=== PATIENT | female | born 1995 | race African-American/Black ===

== ENCOUNTER 2019-01-24 08:56 | Emergency (ER) | payer OTHER ==
--- OUTSIDE RECORDS SUMMARY | 2019-01-24 09:10 | XMS REPORT | Continuity of Care Document ---
:1995 Author Organization [facility] Address [address], [place] [id number] Phone Care Team Providers Name Role Phone Sobia Estrada NP Unavailable Unavailable Allergies, Adverse Reactions, Alerts Substance Reaction Status amoxicillin Hives Active cefaclor Hives Active clarithromycin Hives Active Medications Medication Instructions Dosage Effective Dates Status Comments (start - stop) BD Luer-Makeda Syringe 1 USE DIRECTED TO - Active mL 20 gauge x 1" DRAW UP TESTOSTERONE WEEKLY FOR SUBCUTANEOUS INJECTIONS Monoject Hypodermic Use for - Active Penngrove 25 gauge x subcutaneous 5/8" testosterone injections testosterone inject 0.5 - Active cypionate 200 mg/mL milliliter (100mg) intramuscular oil by subcutaneous route every week - CODE F Monoject Hypodermic Use for - No Longer Penngrove 25 gauge x subcutaneous Active 5/8" testosterone injections BD Luer-Makeda Syringe 1 USE DIRECTED TO - No Longer mL 20 gauge x 1" DRAW UP Active TESTOSTERONE WEEKLY FOR SUBCUTANEOUS INJECTIONS Problems Condition Effective Dates (start - Clinical Status Comments stop) Encntr screen for dis of the bld/bld-form org/immun mechnsm Transsexualism Endocrine disorder, unspecified Transsexualism Human immunodeficiency virus [HIV] - counseling Endocrine disorder, unspecified Transsexualism Body mass index (BMI) 29.0-29.9, adult [id number] transsexual - Active Procedures Procedure Date No information Results Test Name Date and Time Measure Units Reference Range Abnormal Flag Status Comments No information Advance Directives Directive Yes / No Effective Date File Name No information Encounters Encounter Practice Location Reason(s) Diagnoses Date Provider Providers Description For Visit Copied on Encounter [facility] [place] [address], [place], [place], [address], [facility], [address], [place], [place], [id number], [place] tel:[phone] [facility] Nov- [facility] [place]. [address], [place], [place], [facility], [facility] [address] tel:[phone], [place], [address] [place], [id number], [place] tel:[phone] [facility] September- [facility] [place]. [address], [place], [place], [facility], [facility] [address] tel:+ St, [place], [address] [place], [id number], [place] tel:[phone] [facility] Encntr screen Jul- [facility] [place] for dis of the [place]. [address] Provider: [facility] bld/bld-form [address], [place] org/immun [place], [place], [place] [facility], [facility] mechnsmTranssexu [id number]. s, [address] alism tel:+[phone], [place], [address] [place], [place], [address]. [id number], tel:[phone] tel:[phone] [facility] Endocrine [place] [facility]erring [facility] [place] disorder, virgilio [place]. Provider: [facility] unspecifiedTrans 8 [address] [place] [address], [place], [place], [address] [place], [address]. emmer, [address] tel:+[phone], [place], [address] [address], [place], [place], [id number], [place], [address]. [place] tel:+ tel:[phone] [facility] Human Sep-1 Ernesto Referring [facility] [place] immunodeficiency 0-201 Katja. [address] Provider: [place] virus [HIV] [address], [place] counseling[place]ocr [place], [place], Chika Schulz, [address] ine disorder, [address], [place]. [address] unspecifiedTrans tel:[address], [place], sexualismBody [address] [place], [place], [place] ([place], [address]. [id number], 29.0-29.9, adult tel: [phone] tel:[phone] Family History Family Member Diagnosis Age At Onset Mother Pulmonary Fibrosis Father Cardiovascular disease Father High cholesterol, first degree relative Family history of Diabetes (any type), first degree relative Paternal grandfather Myocardial infarction (Cause Of ) 55 Immunizations Vaccine Date Status Comments No information Payers Payer name Insurance type Covered green party ID Authorization(s) No information Social History Type Description Quantity Date Captured Comments Alcohol Use Details Unknown Caffeine Use Details Unknown Tobacco Use Status Unknown Smoking Status Never smoker Sex Female Vital Signs Date / Height Weight BMI Pulse Blood Temperature Respiratory Body Head BMI Pulse Inhaled Time: Rate Pressure Rate Surface Circumference percentile Ox Ox Area No information Chief Complaint And Reason For Visit No information Reason For Referral Reason For Referral No information Plan Of Treatment Date Type Action Status No information History Of Present Illness Encounter Date Complaint History Of Present Illness No information Functional Status Date Functional Assessment No information Medications Administered Medication Instructions Dosage Effective Dates (start - stop) Status Comments No information Instructions Date Instruction Additional Information No information Assessments Type Assessment Date No information Goals Health Concern Goal Type Priority Status Date No information Medical Equipment Description Device Riley Device Identifier Effective Dates (start - stop ) Status No information Mental Status Date Cognitive Assessment No information Health Concerns Observation Date No information Concern Status Date No information
[2019-01-24 09:45] LABS: Urine Appearance Clear; Urine Bacteria Absent (Absent); Urine Bilirubin Negative (Negative); Urine Blood Negative (Negative); Urine Color Yellow; Urine Glucose Negative (Negative); Urine Ketones Negative (Negative); Urine Nitrite Negative (Negative); Urine Protein Negative (Negative); Urine Red Blood Cell 2+(6-10/hpf) (Absent); Urine Specific Gravity 1.019 (1.010-1.030); Urine Urobilinogen Negative (Negative); Urine White Blood Cell 2+(11-20/hpf) (Absent)
[2019-01-24 10:10] LABS: ABS Basophils 0.1 10^3/ul (0-0.2); ABS Eosinophils 0.2 10^3/ul (0-0.6); ABS Lymphocytes 2.3 10^3/ul (1.0-4.8); ABS Monocytes 0.8 10^3/ul (0-0.8); ABS Neutrophils 6.7 10^3/ul (1.5-7.7); Eosinophil % 1.8 %; Hematocrit 47 % (35-47); Hemoglobin 16.2 g/dL (12.0-16.0); Lymphocyte % 22.6 %; Mean Corpuscular HGB Conc 35 g/dL (31-36); Mean Corpuscular Hemoglobin 29 pg (27-31); Mean Corpuscular Volume 83 fL (80-97); Mean Platelet Volume 10.5 fL (7.4-10.4); Platelet Count 224 10^3/uL (150-450); Red Blood Count 5.64 10^6 /uL (3.70-4.87); Red Cell Distribution Width 15 % (10-15); White Blood Count 10.1 10^3/uL (3.5-10.8)
[2019-01-24 10:16] LABS: INR 1.15 (0.82-1.09)
[2019-01-24] MEDS ORDERED: Phenazopyridine TAB* 100 MG PO ONE (10:18)
[2019-01-24] MEDS ORDERED: traMADol TAB* 50 MG PO ONE (10:19)
[2019-01-24] MEDS ORDERED: Sulfamethox/Trimethoprim DS 800/160* TAB PO ONE (10:25)
[2019-01-24 10:27] LABS: ALT 23 U/L (7-52); AST 22 U/L (13-39); Albumin/Globulin Ratio 1.1 (1-3); Alkaline Phosphatase 82 U/L (34-104); Anion Gap 2 mmol/L (2-11); BUN/Creatinine Ratio 18.5 (8-20); Blood Urea Nitrogen 15 mg/dL (6-24); C Reactive Protein 6.83 mg/L (<8.01); CO2 Carbon Dioxide 31 mmol/L (22-32); Calcium 9.3 mg/dL (8.6-10.3); Chloride 104 mmol/L (101-111); EGFR Non-African American 87.6 (>60); Globulin 3.6 g/dL (2-4); Glucose 99 mg/dL (70-100); Magnesium 1.9 mg/dL (1.9-2.7); Potassium 4.4 mmol/L (3.5-5.0); Sodium 137 mmol/L (135-145); Total Protein 7.6 g/dL (6.4-8.9)
[2019-01-24 10:33] LABS: HCG Pregnancy < 0.60 mIU/mL
--- NOTE | 2019-01-24 10:44 | ED ---
Abdominal Pain/Female - HPI Summary HPI Summary: This patient is a 23-year-old individual going by the name of "Javi" and currently on testosterone presenting to the ED with suprapubic tenderness/ abdominal pain 3 days. This patient is also stating they had 1 loose BM 2 days ago. Denies abdominal tenderness to the upper quadrants. Endorses mild back tenderness. They state they have had a history of UTIs, kidney stones and PID. This patient states they all feel similar to their previous episodes. In complaint is endorsing UTI symptoms/abdominal pain. Denies fevers, sweats, chills. Currently on testosterone, but denies any other medication. Denies any gross hematuria. Patient states they have been feeling otherwise well. Denies any recent travel, constipation, perfuse diarrhea, antibiotics, burping, nausea or vomiting. Patient denies any history of STDs. Denies chance of . - History of Current Complaint Chief Complaint: EDAbdPain Stated Complaint: ABD PAIN PER PT Time Seen by Provider: 01/24/19 09:13 Hx Obtained From: Patient ?: No Onset/Duration: Sudden Onset Timing: Constant Severity Initially: Mild Severity Currently: Mild Pain Intensity: 6 Pain Scale Used: 0-10 Numeric Location: Suprapubic Character: Burning Aggravating Factor(s): Nothing Alleviating Factor(s): Nothing Associated Signs and Symptoms: Positive: Negative Allergies/Adverse Reactions: Allergies Allergy/AdvReac Type Severity Reaction Status Date / Time amoxicillin Allergy Rash Verified 01/24/19 09:18 cefaclor [From Ceclor] Allergy Rash Verified 01/24/19 09:18 clarithromycin [From Biaxin] Allergy Rash Verified 01/24/19 09:18 Home Medications: Home Medications Cyclobenzaprine TAB* [Flexeril 10 MG TAB*] 10 mg PO BID PRN 01/24/19 [History Confirmed 01/24/19] Testosterone 5 ml SUBCUT MONTHLY 01/24/19 [History Confirmed 01/24/19] PMH/Surg Hx/FS Hx/Imm Hx Previously Healthy: Yes - Immunization History Hx Pertussis Vaccination: No Immunizations Up to Date: Yes Infectious Disease History: No Infectious Disease History: Denies: Traveled Outside the [place] in Last 30 Days - Social History Occupation: Employed Full-time Lives: With Family Alcohol Use: Occasionally Hx Substance Use: No Substance Use Type: Reports: None Hx Tobacco Use: No Smoking Status (MU): Never Smoked Tobacco Review of Systems Constitutional: Negative Negative: Fever, Chills, Fatigue, Skin Diaphoresis Negative: Chest Pain Negative: Shortness Of Breath, Cough Positive: Abdominal Pain. Negative: Vomiting, Diarrhea, Nausea Positive: see HPI, burning, dysuria, frequency, flank pain, pain, urgency Positive: Arthralgia - back pain throughout, but no CVA tenderness. Negative: Myalgia Neurological: Negative All Other Systems Reviewed And Are Negative: Yes Physical Exam Triage Information Reviewed: Yes Vital Signs On Initial Exam: Initial Vitals Temp Pulse Resp BP Pulse Ox 99.9 F 102 16 123/100 100 01/24/19 08:58 01/24/19 08:58 01/24/19 08:58 01/24/19 08:58 01/24/19 08:58 Vital Signs Reviewed: Yes Appearance: Positive: Well-Appearing, Well-Nourished Skin: Positive: Warm, Skin Color Reflects Adequate Perfusion Head/Face: Positive: Normal Head/Face Inspection Eyes: Positive: EOMI, JEFF, Conjunctiva Clear Neck: Positive: Supple, No Lymphadenopathy Respiratory/Lung Sounds: Positive: Clear to Auscultation Musculoskeletal: Positive: Normal, Strength/ROM Intact Neurological: Positive: Sensory/Motor Intact, Alert, Oriented to Person Place, Time Psychiatric: Positive: Normal, Affect/Mood Appropriate AVPU Assessment: Alert Diagnostics - Vital Signs Vital Signs Temp Pulse Resp BP Pulse Ox 01/24/19 08:58 99.9 F 102 16 123/100 100 - Laboratory Lab Results: Lab Results 01/24/19 01/24/19 01/24/19 Range/Units 09:35 10:00 10:00 WBC 10.1 (3.5-10.8) 10^3/uL RBC 5.64 H (3.70-4.87) 10^6 /uL Hgb 16.2 H (12.0-16.0) g/dL Hct 47 (35-47) % MCV 83 (80-97) fL MCH 29 (27-31) pg MCHC 35 (31-36) g/dL RDW 15 (10-15) % Plt Count 224 (150-450) 10^3/uL MPV 10.5 H (7.4-10.4) fL Neut % (Auto) 66.7 % Lymph % (Auto) 22.6 % Noble % (Auto) 8.3 % Eos % (Auto) 1.8 % Baso % (Auto) 0.6 % Absolute Neuts (auto) 6.7 (1.5-7.7) 10^3/ul Absolute Lymphs (auto) 2.3 (1.0-4.8) 10^3/ul Absolute Monos (auto) 0.8 (0-0.8) 10^3/ul Absolute Eos (auto) 0.2 (0-0.6) 10^3/ul Absolute Basos (auto) 0.1 (0-0.2) 10^3/ul Absolute Nucleated RBC 0.0 10^3/ul Nucleated RBC % 0.0 INR (Anticoag Therapy) 1.15 H (0.82-1.09) Sodium (135-145) mmol/L Potassium (3.5-5.0) mmol/L Chloride (101-111) mmol/L Carbon Dioxide (22-32) mmol/L Anion Gap (2-11) mmol/L BUN (6-24) mg/dL Creatinine (0.51-0.95) mg/dL Est GFR ( Amer) (>60) Est GFR (Non-Af Amer) (>60) BUN/Creatinine Ratio (8-20) Glucose (70-100) mg/dL Lactic Acid (0.5-2.0) mmol/L Calcium (8.6-10.3) mg/dL Magnesium (1.9-2.7) mg/dL Total Bilirubin (0.2-1.0) mg/dL AST (13-39) U/L ALT (7-52) U/L Alkaline Phosphatase (34-104) U/L C-Reactive Protein (<8.01) mg/L Total Protein (6.4-8.9) g/dL Albumin (3.2-5.2) g/dL Globulin (2-4) g/dL Albumin/Globulin Ratio (1-3) Lipase (11.0-82.0) U/L Beta HCG, Quant mIU/mL Urine Color Yellow Urine Appearance Clear Urine pH 6.0 (5-9) Ur Specific Lafe 1.019 (1.010-1.030) Urine Protein Negative (Negative) Urine Ketones Negative (Negative) Urine Blood Negative (Negative) Urine Nitrate Negative (Negative) Urine Bilirubin Negative (Negative) Urine Urobilinogen Negative (Negative) Ur Leukocyte Esterase 2+ A (Negative) Urine WBC (Auto) 2+(11-20/hpf) A (Absent) Urine RBC (Auto) 2+(6-10/hpf) A (Absent) Urine Bacteria Absent (Absent) Urine Glucose Negative (Negative) 01/24/19 01/24/19 Range/Units 10:00 10:00 WBC (3.5-10.8) 10^3/uL RBC (3.70-4.87) 10^6 /uL Hgb (12.0-16.0) g/dL Hct (35-47) % MCV (80-97) fL MCH (27-31) pg MCHC (31-36) g/dL RDW (10-15) % Plt Count (150-450) 10^3/uL MPV (7.4-10.4) fL Neut % (Auto) % Lymph % (Auto) % Noble % (Auto) % Eos % (Auto) % Baso % (Auto) % Absolute Neuts (auto) (1.5-7.7) 10^3/ul Absolute Lymphs (auto) (1.0-4.8) 10^3/ul Absolute Monos (auto) (0-0.8) 10^3/ul Absolute Eos (auto) (0-0.6) 10^3/ul Absolute Basos (auto) (0-0.2) 10^3/ul Absolute Nucleated RBC 10^3/ul Nucleated RBC % INR (Anticoag Therapy) (0.82-1.09) Sodium 137 (135-145) mmol/L Potassium 4.4 (3.5-5.0) mmol/L Chloride 104 (101-111) mmol/L Carbon Dioxide 31 (22-32) mmol/L Anion Gap 2 (2-11) mmol/L BUN 15 (6-24) mg/dL Creatinine 0.81 (0.51-0.95) mg/dL Est GFR ( Amer) 106.0 (>60) Est GFR (Non-Af Amer) 87.6 (>60) BUN/Creatinine Ratio 18.5 (8-20) Glucose 99 (70-100) mg/dL Lactic Acid 1.0 (0.5-2.0) mmol/L Calcium 9.3 (8.6-10.3) mg/dL Magnesium 1.9 (1.9-2.7) mg/dL Total Bilirubin 0.40 (0.2-1.0) mg/dL AST 22 (13-39) U/L ALT 23 (7-52) U/L Alkaline Phosphatase 82 (34-104) U/L C-Reactive Protein 6.83 (<8.01) mg/L Total Protein 7.6 (6.4-8.9) g/dL Albumin 4.0 (3.2-5.2) g/dL Globulin 3.6 (2-4) g/dL Albumin/Globulin Ratio 1.1 (1-3) Lipase 25 (11.0-82.0) U/L Beta HCG, Quant < 0.60 mIU/mL Urine Color Urine Appearance Urine pH (5-9) Ur Specific Lafe (1.010-1.030) Urine Protein (Negative) Urine Ketones (Negative) Urine Blood (Negative) Urine Nitrate (Negative) Urine Bilirubin (Negative) Urine Urobilinogen (Negative) Ur Leukocyte Esterase (Negative) Urine WBC (Auto) (Absent) Urine RBC (Auto) (Absent) Urine Bacteria (Absent) Urine Glucose (Negative) Result Diagrams: 01/24/19 10:00 01/24/19 10:00 Lab Statement: Any lab studies that have been ordered have been reviewed, and results considered in the medical decision making process. Abdominal Pain Fem Course/Dx - Course Course Of Treatment: This patient is an otherwise healthy 23-year-old born female currently on testosterone presenting to the ED with bilateral lower quadrant pain, most notably to the suprapubic region. Physical examination, patient appears well, nontoxic and nondiaphoretic. Lungs CTA, RRR. No CVA tenderness bilaterally. Mild tenderness to the suprapubic region on deep palpation. Denies any weakness throughout. Denies any subjective fevers, sweats or chills. Labs obtained which show a normal white count with no abnormal findings. Urine shows 2+ leukocytes and 2+ WBCs as well as 2+ RBCs. Patient is given tramadol in the ED for her back pain, Bactrim for UTI and Pyridium for UTI symptoms. They deny any other concerns at this time. As patient remains afebrile, with no CVA tenderness on exam and no possibility or previous history of STDs, patient will be treated with a UTI at this time. If they have further concerns or any worsening or changing symptoms, they will return to the ED or follow-up with her PCP for further evaluation. - Diagnoses Differential Diagnosis: Positive: Other - PID, abd pain, std's, ovarian pathology, kidney stones Provider Diagnoses: UTI (urinary tract infection) Discharge ED - Sign-Out/Discharge Documenting (check all that apply): Patient Departure Patient Received Moderate/Deep Sedation with Procedure: No - Discharge Plan Condition: Stable Disposition: HOME Prescriptions: Phenazopyridine TAB* [Pyridium 100 mg TAB*] 100 mg PO TID #12 tab Sulfamethox/Trimethoprim DS* [Bactrim DS 800/160 TAB*] 1 tab PO BID #10 tab traMADol TAB* [Ultram*] 50 mg PO Q8H PRN #6 tab MDD 3 PRN Reason: Pain Patient Education Materials: Urinary Tract Infection in Women (ED), Dysuria (ED ) Referrals: No Primary Care Phys,NOPCP [Primary Care Provider] - Additional Instructions: Pyridium up to 3 times daily as needed for any dysuria or urinary discomfort Tramadol as needed up to 3 times daily for back pain Bactrim twice daily 5 days, ear next dose will be this evening As discussed, your labs on today's visit are all normal You do have a UTI We will call with any change of medication needs - Billing Disposition and Condition Condition: STABLE Disposition: Home
[2019-01-24 10:54] VITALS: BP 121/75
== END 2019-01-24 10:53 | disposition home or self-care (01) ==
LOC: EDSEX → ED 08:56
DX: N39.0 Urinary tract infection, site not specified (principal); Z79.899 Other long term (current) drug therapy; Z88.1 Allergy status to other antibiotic agents
CPT/HCPCS: 36415; 80053; 81003; 81015; 83605; 83690; 83735; 84702; 85025; 85610; 86140; 87086; 99283; A9270-GY